=== PATIENT | female | born 1995 | race Caucasian/White ===

== ENCOUNTER 2017-08-01 16:24 | Inpatient (IN) | payer OTHER ==
[~2017-08-01] VITALS: Ht 160 cm; Wt 74.8 kg
[2017-08-01 18:51] VITALS: BP_SYST 142
[2017-08-01] MEDS ORDERED: OXYTOCIN/NORMAL SALINE 1,000 ML IV SCH (18:55)
[2017-08-01] MEDS ORDERED: LR 500 ML IV ONE (18:55)
[2017-08-01] MEDS ORDERED: TERBUTALINE SULFATE 1 MG/ML VIAL SUBCUT ONE (19:00)
[2017-08-01] MEDS ORDERED: NALBUPHINE HCL 10 MG/ML AMP IVP PRN (19:00)
[2017-08-01 19:32] LABS: BASOPHILS % (AUTO) 0.3 % (0.0-2.0); EOSINOPHILS % (AUTO) 0.4 % (0.0-4.0); HEMATOCRIT 34.1 % (36-48); HEMOGLOBIN 11.4 g/dL (12.0-16.0); LYMPHOCYTES # (AUTO) 1.8 K/uL (1.0-5.5); LYMPHOCYTES % (AUTO) 18.1 % (20.5-51.5); MEAN CORPUSCULAR HEMOGLOBIN 31 pg (27-31); MEAN CORPUSCULAR HGB CONC 33 % (32-36); MEAN CORPUSCULAR VOLUME 92 fL (79.0-98.0); MONOCYTES # (AUTO) 0.7 K/uL (0.0-1.0); MONOCYTES % (AUTO) 7.1 % (1.7-9.3); NEUTROPHILS # (AUTO) 7.7 K/uL (1.8-7.7); NEUTROPHILS % (AUTO) 74.1 % (40.0-70.0); PLATELET COUNT (AUTO) 169 K/uL (130-430); RED CELL DISTRIBUTION WIDTH 13.2 % (9.0-15.0); WHITE BLOOD COUNT (AUTO) 10.2 K/uL (4.5-11.0)
[2017-08-01] MEDS ORDERED: AMPICILLIN SODIUM 2 GM in NS 100 ML IV ONE (20:45)
[2017-08-01] MEDS ORDERED: DIPH-TET-PERTUS Vaccine 0.5 ML VIAL (ADACEL) I.M. PRN (21:00)
[2017-08-01] MEDS ORDERED: AMPICILLIN SODIUM 2 GM VIAL ONE (21:00)
[2017-08-01] MEDS: LR 1,000 ML IV SCH (23:30)
[2017-08-01 23:53] LABS: BARBITURATE, URINE NEGATIVE (NEG <=200); BENZODIAZEPINE, URINE NEGATIVE (NEG <=150); CANNABINOID, URINE POSITIVE (NEG <=50); COCAINE, URINE NEGATIVE (NEG <=150); METHAMPHETAMINES SCREEN,URINE NEGATIVE (NEG <=500); OPIATE, URINE NEGATIVE (NEG <=100); PHENCYCLIDINE SCREEN,URINE NEGATIVE (NEG <=25); URINE AMPHETAMINE NEGATIVE (NEG <=500); URINE METHADONE NEGATIVE (NEG <=200)
[2017-08-01 23:54] LABS: UR TRICYCLIC ANTIDEPRESSANTS NEGATIVE (NEG <=300); URINE OXYCODONE SCREEN NEGATIVE (NEG <=100); URINE PROPOXYPHENE SCREEN NEGATIVE (NEG <=300)
[2017-08-02] MEDS ORDERED: FENT2mCg/mL-ROPIVA0.2%/NS EPID 150 ML EP SCH (01:04)
[2017-08-02] MEDS ORDERED: FENT2mCg/mL-ROPIVA0.2%/NS EPID 150 ML EP ONE (01:04)
[2017-08-02] MEDS ORDERED: AMPICILLIN SODIUM 1 GM VIAL ONE ×2 (01:18→05:16)
[2017-08-02] MEDS: AMPICILLIN SODIUM 1 GM in NS 50 ML IV SCH ×2 (01:20→05:13)
[2017-08-02] MEDS: LR 1,000 ML IV SCH ×2 (01:40→05:22)
[2017-08-02] MEDS ORDERED: OXYTOCIN/NORMAL SALINE 1,000 ML IV ONE (08:24)
[2017-08-02] MEDS ORDERED: HYDROcodone/ACETAMIN 5-325 MG TAB (NORCO/ VICODIN) PO PRN ×2 (08:30)
[2017-08-02] MEDS ORDERED: SENNOSIDES/DOCUSATE SODIUM 1 TAB TABLET(SENOKOT-S) PO PRN (08:30)
[2017-08-02] MEDS ORDERED: HYDROCORTISONE 0.5%, 28.35 GM TOPICAL CREAM TP PRN (08:30)
[2017-08-02] MEDS ORDERED: LANOLIN 7 GM OINT. TP PRN (08:30)
[2017-08-02] MEDS ORDERED: ANUSOL 1 EA SUPP.RECT (PREPARATION H) RC PRN (08:30)
[2017-08-02] MEDS ORDERED: DERMOPLAST SPRAY TP PRN (08:30)
[2017-08-02] MEDS ORDERED: DOCUSATE SODIUM 100 MG CAPSULE PO PRN (08:30)
[2017-08-02] MEDS ORDERED: GLYCERIN/WITCH HAZEL (TUCKS PADS) TP PRN (08:30)
[2017-08-02] MEDS ORDERED: METHYLERGONOVINE MALEATE 0.2 MG TABLET PO PRN (08:30)
[2017-08-02] MEDS ORDERED: ONDANSETRON HCL 4 MG/2 ML VIAL IVP PRN (11:07)
[2017-08-02] MEDS ORDERED: ONDANSETRON HCL 4 MG/2 ML VIAL ONE (11:07)
[2017-08-02] MEDS: IBUPROFEN 800 MG TABLET PO PRN ×2 (11:38→17:58)
[2017-08-02] MEDS ORDERED: TEMAZEPAM 15 MG CAPSULE PO PRN (21:00)
[2017-08-03] MEDS: IBUPROFEN 800 MG TABLET PO PRN ×3 (00:11→11:49)
[2017-08-03 07:49] LABS: BASOPHILS % (AUTO) 0.3 % (0.0-2.0); EOSINOPHILS # (AUTO) 0.1 K/uL (0.0-0.4); EOSINOPHILS % (AUTO) 0.6 % (0.0-4.0); HEMATOCRIT 31.4 % (36-48); HEMOGLOBIN 10.6 g/dL (12.0-16.0); LYMPHOCYTES # (AUTO) 2.2 K/uL (1.0-5.5); LYMPHOCYTES % (AUTO) 21.1 % (20.5-51.5); MEAN CORPUSCULAR HEMOGLOBIN 32 pg (27-31); MEAN CORPUSCULAR HGB CONC 34 % (32-36); MONOCYTES # (AUTO) 0.6 K/uL (0.0-1.0); MONOCYTES % (AUTO) 5.7 % (1.7-9.3); NEUTROPHILS # (AUTO) 7.7 K/uL (1.8-7.7); NEUTROPHILS % (AUTO) 72.3 % (40.0-70.0); PLATELET COUNT (AUTO) 147 K/uL (130-430); RED BLOOD CELL COUNT(AUTO) 3.32 MIL/uL (4.2-6.2); RED CELL DISTRIBUTION WIDTH 14.1 % (9.0-15.0); WHITE BLOOD COUNT (AUTO) 10.6 K/uL (4.5-11.0)
[2017-08-03 07:51] LABS: MEAN CORPUSCULAR VOLUME 95 fL (79.0-98.0)
== END 2017-08-03 14:15 | disposition home or self-care (01) | DRG 775 ==
LOC: SPU 16:24 → OBSVTOIN 17:15 → SPU 08-02 12:16
PROVIDERS: ADMIT Obstetrics & Gynecology; ATTEND Obstetrics & Gynecology
PROC: 10E0XZZ Delivery of Products of Conception, External Approach (ICD-10-PCS; principal; 2017-08-02)
PROC: 00HU33Z Insertion of Infusion Device into Spinal Canal, Percutaneous Approach (ICD-10-PCS; 2017-08-02)
DX: O60.14X0 Preterm labor third trimester with preterm delivery third trimester, not applicable or unspecified (principal); O99.324 Drug use complicating childbirth; F12.90 Cannabis use, unspecified, uncomplicated; Z37.0 Single live birth; Z3A.36 36 weeks gestation of pregnancy; Z88.8 Allergy status to other drugs, medicaments and biological substances
CPT/HCPCS: 36415; 80307; 81002-TC; 85025; 86592; 86886; 86900; 86901; 88307; 90715; G0378; J0290; J2405; J2590; J3010; J7120